=== PATIENT | male | born 1950 | race Caucasian/White ===

== ENCOUNTER 2020-05-14 09:51 | Outpatient (CLI) | payer OTHER, MEDICARE, SELFPAY ==
[2020-05-14 10:16] LABS: Abs Immature Grans 0.08 10^3/uL (0.0-0.06); Absolute Lymphocyte Count 1.76 10^3/uL (1.2-3.4); Absolute Neutrophil Count 12.69 10^3/uL (1.2-6.7); Basophils % 0.3; Eosinophils % 2.1; HCT 45.4 % (40.0-50.0); Immature Grans % 0.5; MCV 93.8 fL (80-95); MPV 10.5 fL (8.0-11.0); Monocytes % 6.6; Neutrophils % 79.5; Nucleated RBC 0 %; Platelet Count 396 10^3/uL (130-400); RBC 4.84 10^6/uL (4.36-5.78); RDW 12.6 % (11.8-14.1); RDW-SD 43.6 fL; WBC 15.96 10^3/uL (4.4-10.8)
[2020-05-14 10:18] LABS: Absolute Basophil Count 0.05 10^3/uL (0.0-0.2); Absolute Eosinophil Count 0.34 10^3/uL (0.0-0.7); Absolute Monocyte Count 1.05 10^3/uL (0.1-0.8)
[2020-05-14 10:36] LABS: ALT 38 U/L (16-63); AST 21 U/L (15-37); Albumin 3.1 g/dL (3.4-5.0); Alkaline Phosphatase 121 U/L (46-116); BUN 20 mg/dL (7-18); Bilirubin, Total 0.5 mg/dL (0.2-1.0); CREATININE 0.89 mg/dL (0.70-1.30); Calcium 10.2 mg/dL (8.5-10.1); Chloride 99 mmol/L (98-107); Glucose 127 mg/dL (74-106); Magnesium 2.1 mg/dL (1.8-2.4); Potassium 4.4 mmol/L (3.5-5.1); Sodium 139 mmol/L (136-145); Total Protein 8.5 g/dL (6.4-8.2)
== END 2020-05-14 10:11 ==
PROVIDERS: PCP Family Medicine; Visit Provider Internal Medicine Medical Oncology
DX: C34.90 Malignant neoplasm of unspecified part of unspecified bronchus or lung (principal)
CPT/HCPCS: 36415; 80053; 83735; 85025

== ENCOUNTER 2020-06-11 02:59 | Outpatient (CLI) | payer OTHER, SELFPAY ==
[2020-06-11 11:31] LABS: Abs Immature Grans 0.23 10^3/uL (0.0-0.06); Absolute Eosinophil Count 0.32 10^3/uL (0.0-0.7); Absolute Lymphocyte Count 2.19 10^3/uL (1.2-3.4); Absolute Monocyte Count 1.25 10^3/uL (0.1-0.8); Basophils % 0.5; Eosinophils % 1.6; HCT 38.5 % (40.0-50.0); HGB 12.9 g/dL (13.5-17.5); Immature Grans % 1.1; Lymphocytes % 10.9; MCH 31.2 pg (27.0-33.0); MCHC 33.5 % (32.0-36.0); MPV 10.6 fL (8.0-11.0); Monocytes % 6.2; Neutrophils % 79.7; Nucleated RBC 0 %; Platelet Count 500 10^3/uL (130-400); RBC 4.14 10^6/uL (4.36-5.78); RDW 13.9 % (11.8-14.1); RDW-SD 45.7 fL; WBC 20.09 10^3/uL (4.4-10.8)
[2020-06-11 11:32] LABS: Absolute Neutrophil Count 16.01 10^3/uL (1.2-6.7)
[2020-06-11 11:47] LABS: ALT 94 U/L (16-63); AST 40 U/L (15-37); Albumin 3.2 g/dL (3.4-5.0); Alkaline Phosphatase 208 U/L (46-116); Anion Gap 11.1 mmol/L (3-11); BUN 28 mg/dL (7-18); Bilirubin, Total 0.4 mg/dL (0.2-1.0); CO2 26.9 mmol/L (21.0-32.0); CREATININE 0.9 mg/dL (0.70-1.30); Calcium 10.5 mg/dL (8.5-10.1); Chloride 96 mmol/L (98-107); Glucose 129 mg/dL (74-106); Magnesium 1.7 mg/dL (1.8-2.4); Potassium 4.9 mmol/L (3.5-5.1); Sodium 134 mmol/L (136-145); Total Protein 8.8 g/dL (6.4-8.2)
== END 2020-06-11 03:00 | disposition home or self-care (01) ==
LOC: LBO 02:59
PROVIDERS: PCP Family Medicine; Visit Provider Internal Medicine Medical Oncology
DX: C34.90 Malignant neoplasm of unspecified part of unspecified bronchus or lung (principal)
CPT/HCPCS: 36415; 80053; 83735; 85025

== ENCOUNTER 2020-06-23 02:55 | Outpatient (CLI) | payer OTHER, SELFPAY ==
[2020-06-23 09:02] LABS: Abs Immature Grans 0.09 10^3/uL (0.0-0.06); Absolute Basophil Count 0.06 10^3/uL (0.0-0.2); Absolute Eosinophil Count 0.26 10^3/uL (0.0-0.7); Absolute Lymphocyte Count 1.71 10^3/uL (1.2-3.4); Absolute Monocyte Count 0.96 10^3/uL (0.1-0.8); Absolute Neutrophil Count 11.27 10^3/uL (1.2-6.7); Basophils % 0.4; Eosinophils % 1.8; HCT 39.5 % (40.0-50.0); HGB 13.1 g/dL (13.5-17.5); Immature Grans % 0.6; Lymphocytes % 11.9; MCHC 33.2 % (32.0-36.0); MCV 93.6 fL (80-95); MPV 10.9 fL (8.0-11.0); Monocytes % 6.7; Neutrophils % 78.6; Nucleated RBC 0 %; Platelet Count 375 10^3/uL (130-400); RBC 4.22 10^6/uL (4.36-5.78); RDW 13.6 % (11.8-14.1); RDW-SD 46.1 fL; WBC 14.34 10^3/uL (4.4-10.8)
[2020-06-23 09:15] LABS: ALT 92 U/L (16-63); AST 51 U/L (15-37); Albumin 2.9 g/dL (3.4-5.0); Alkaline Phosphatase 160 U/L (46-116); Anion Gap 11.3 mmol/L (3-11); BUN 38 mg/dL (7-18); Bilirubin, Total 0.5 mg/dL (0.2-1.0); CO2 21.7 mmol/L (21.0-32.0); CREATININE 0.8 mg/dL (0.70-1.30); Calcium 9.7 mg/dL (8.5-10.1); Chloride 103 mmol/L (98-107); Glucose 118 mg/dL (74-106); Magnesium 2.1 mg/dL (1.8-2.4); Sodium 136 mmol/L (136-145); Total Protein 7.6 g/dL (6.4-8.2)
== END 2020-06-23 02:56 | disposition home or self-care (01) ==
LOC: LBO 02:55
PROVIDERS: PCP Family Medicine; Visit Provider Internal Medicine Medical Oncology
DX: C34.90 Malignant neoplasm of unspecified part of unspecified bronchus or lung (principal)
CPT/HCPCS: 36415; 80053; 83735; 85025

== ENCOUNTER 2020-07-07 04:22 | Outpatient (CLI) | payer OTHER, SELFPAY ==
[2020-07-07 08:45] LABS: Abs Immature Grans 0.14 10^3/uL (0.0-0.06); Absolute Basophil Count 0.05 10^3/uL (0.0-0.2); Absolute Eosinophil Count 0.37 10^3/uL (0.0-0.7); Absolute Lymphocyte Count 2.37 10^3/uL (1.2-3.4); Absolute Monocyte Count 1.18 10^3/uL (0.1-0.8); Absolute Neutrophil Count 7.36 10^3/uL (1.2-6.7); Basophils % 0.4; Eosinophils % 3.2; HCT 39.5 % (40.0-50.0); HGB 12.8 g/dL (13.5-17.5); Immature Grans % 1.2; Lymphocytes % 20.7; MCH 31.1 pg (27.0-33.0); MCHC 32.4 % (32.0-36.0); MCV 95.9 fL (80-95); MPV 10.6 fL (8.0-11.0); Monocytes % 10.3; Neutrophils % 64.2; Nucleated RBC 0 %; Platelet Count 439 10^3/uL (130-400); RBC 4.12 10^6/uL (4.36-5.78); RDW 16.8 % (11.8-14.1); RDW-SD 54.7 fL; WBC 11.47 10^3/uL (4.4-10.8)
[2020-07-07 08:58] LABS: ALT 192 U/L (16-63); AST 51 U/L (15-37); Alkaline Phosphatase 442 U/L (46-116); BUN 40 mg/dL (7-18); Bilirubin, Total 0.5 mg/dL (0.2-1.0); Chloride 103 mmol/L (98-107); Glucose 156 mg/dL (74-106); Magnesium 2.2 mg/dL (1.8-2.4); Potassium 5.2 mmol/L (3.5-5.1); Sodium 138 mmol/L (136-145); Total Protein 7.9 g/dL (6.4-8.2)
== END 2020-07-07 04:23 | disposition home or self-care (01) ==
LOC: LBO 04:22
PROVIDERS: PCP Family Medicine; Visit Provider Internal Medicine Medical Oncology
DX: C34.90 Malignant neoplasm of unspecified part of unspecified bronchus or lung (principal)
CPT/HCPCS: 36415; 80053; 83735; 85025

== ENCOUNTER 2020-07-14 03:09 | Outpatient (CLI) | payer OTHER, SELFPAY ==
[2020-07-14 08:39] LABS: Abs Immature Grans 0.04 10^3/uL (0.0-0.06); Absolute Basophil Count 0.02 10^3/uL (0.0-0.2); Absolute Eosinophil Count 0.19 10^3/uL (0.0-0.7); Absolute Lymphocyte Count 0.87 10^3/uL (1.2-3.4); Absolute Monocyte Count 0.42 10^3/uL (0.1-0.8); Absolute Neutrophil Count 3.88 10^3/uL (1.2-6.7); Basophils % 0.4; Eosinophils % 3.5; HCT 34.8 % (40.0-50.0); HGB 10.8 g/dL (13.5-17.5); Immature Grans % 0.7; Lymphocytes % 16.1; MCH 30.9 pg (27.0-33.0); MCV 99.7 fL (80-95); MPV 10.8 fL (8.0-11.0); Monocytes % 7.7; Neutrophils % 71.6; Nucleated RBC 0 %; Platelet Count 362 10^3/uL (130-400); RBC 3.49 10^6/uL (4.36-5.78); RDW 16.8 % (11.8-14.1); RDW-SD 60.6 fL; WBC 5.42 10^3/uL (4.4-10.8)
[2020-07-14 08:57] LABS: ALT 462 U/L (16-63); AST 256 U/L (15-37); Albumin 2.6 g/dL (3.4-5.0); Alkaline Phosphatase 702 U/L (46-116); Anion Gap 10.9 mmol/L (3-11); BUN 41 mg/dL (7-18); Bilirubin, Total 3.3 mg/dL (0.2-1.0); CO2 24.1 mmol/L (21.0-32.0); CREATININE 1.1 mg/dL (0.70-1.30); Calcium 9.1 mg/dL (8.5-10.1); Chloride 106 mmol/L (98-107); Glucose 165 mg/dL (74-106); Potassium 4.8 mmol/L (3.5-5.1); Sodium 141 mmol/L (136-145); Total Protein 7.2 g/dL (6.4-8.2)
== END 2020-07-14 03:10 | disposition home or self-care (01) ==
LOC: LBO 03:09
PROVIDERS: PCP Family Medicine; Visit Provider Internal Medicine Medical Oncology
DX: C34.90 Malignant neoplasm of unspecified part of unspecified bronchus or lung (principal)
CPT/HCPCS: 36415; 80053; 83735; 85025

== ENCOUNTER 2020-07-28 02:54 | Outpatient (RCR) | payer OTHER, SELFPAY ==
[2020-07-28 09:41] LABS: Abs Immature Grans 0.14 10^3/uL (0.0-0.06); Absolute Basophil Count 0.03 10^3/uL (0.0-0.2); Absolute Lymphocyte Count 1.22 10^3/uL (1.2-3.4); Basophils % 0.2; Eosinophils % 0.6; HCT 41.3 % (40.0-50.0); HGB 13.5 g/dL (13.5-17.5); Immature Grans % 0.9; Lymphocytes % 7.6; MCH 32.8 pg (27.0-33.0); MCHC 32.7 % (32.0-36.0); MCV 100.2 fL (80-95); MPV 10.8 fL (8.0-11.0); Monocytes % 4.6; Neutrophils % 86.1; Nucleated RBC 0 %; Platelet Count 205 10^3/uL (130-400); RBC 4.12 10^6/uL (4.36-5.78); RDW-SD 68.8 fL; WBC 16.02 10^3/uL (4.4-10.8)
[2020-07-28 09:45] LABS: Absolute Monocyte Count 0.74 10^3/uL (0.1-0.8); Absolute Neutrophil Count 13.79 10^3/uL (1.2-6.7)
[2020-07-28 10:04] LABS: ALT 153 U/L (16-63); AST 75 U/L (15-37); Albumin 2.8 g/dL (3.4-5.0); Alkaline Phosphatase 448 U/L (46-116); Anion Gap 14.2 mmol/L (3-11); BUN 37 mg/dL (7-18); Bilirubin, Total 1.9 mg/dL (0.2-1.0); CO2 21.8 mmol/L (21.0-32.0); Calcium 10.1 mg/dL (8.5-10.1); Chloride 103 mmol/L (98-107); FREE T4 1.27 ng/dL (0.76-1.46); Glucose 214 mg/dL (74-106); Potassium 4.5 mmol/L (3.5-5.1); Sodium 139 mmol/L (136-145); TSH 1.93 uIU/mL (0.36-3.74); Total Protein 8.3 g/dL (6.4-8.2)
== END 2020-07-30 23:59 | disposition home or self-care (01) ==
LOC: INF 02:54
PROVIDERS: Internal Medicine Medical Oncology; PCP Family Medicine; Visit Provider Internal Medicine Hematology & Oncology
DX: C34.90 Malignant neoplasm of unspecified part of unspecified bronchus or lung (principal); Z79.899 Other long term (current) drug therapy
CPT/HCPCS: 36415; 80053; 84439; 84443; 85025

== ENCOUNTER 2020-08-25 14:23 | Outpatient (CLI) | payer OTHER, SELFPAY ==
[2020-08-25 14:40] LABS: Abs Immature Grans 0.56 10^3/uL (0.0-0.06); Absolute Eosinophil Count 0.27 10^3/uL (0.0-0.7); HCT 30.2 % (40.0-50.0); HGB 9.8 g/dL (13.5-17.5); Immature Grans % 4.2; MCH 34.1 pg (27.0-33.0); MCHC 32.5 % (32.0-36.0); MCV 105.2 fL (80-95); MPV 9.1 fL (8.0-11.0); Nucleated RBC 0 %; Platelet Count 398 10^3/uL (130-400); RBC 2.87 10^6/uL (4.36-5.78); RDW 19.4 % (11.8-14.1); RDW-SD 74.4 fL; WBC 13.25 10^3/uL (4.4-10.8)
[2020-08-25 15:01] LABS: ALT 66 U/L (16-63); AST 33 U/L (15-37); Albumin 2.6 g/dL (3.4-5.0); Alkaline Phosphatase 293 U/L (46-116); Anion Gap 10.1 mmol/L (3-11); BUN 27 mg/dL (7-18); Bilirubin, Total 0.3 mg/dL (0.2-1.0); CO2 26.9 mmol/L (21.0-32.0); CREATININE 0.8 mg/dL (0.70-1.30); Calcium 9.7 mg/dL (8.5-10.1); Chloride 100 mmol/L (98-107); FREE T4 1.12 ng/dL (0.76-1.46); Glucose 154 mg/dL (74-106); Magnesium 1.3 mg/dL (1.8-2.4); Potassium 4.5 mmol/L (3.5-5.1); Sodium 137 mmol/L (136-145); TSH 1.66 uIU/mL (0.36-3.74); Total Protein 7.5 g/dL (6.4-8.2)
[2020-08-25 15:35] LABS: Absolute Lymphocyte Count 1.86 10^3/uL (1.2-3.4); Absolute Monocyte Count 1.33 10^3/uL (0.1-0.8); Absolute Neutrophil Count 9.14 10^3/uL (1.2-6.7); Atypical Lymphocytes % 1; Bands % 2
[2020-08-25 15:36] LABS: Absolute Basophil Count 0.13 10^3/uL (0.0-0.2); Anisocytosis 2+; Diff Comment Manual Differential; Metamyelocytes % 1; Myelocytes % 3
[2020-08-25 15:37] LABS: Macrocytosis 1+; Microcytosis 1+; Polychromasia Present
== END 2020-08-25 14:24 | disposition home or self-care (01) ==
LOC: LBO 14:24
PROVIDERS: PCP Family Medicine; Visit Provider Internal Medicine Medical Oncology
DX: C34.90 Malignant neoplasm of unspecified part of unspecified bronchus or lung (principal); Z79.899 Other long term (current) drug therapy
CPT/HCPCS: 36415; 80053; 83735; 84439; 84443; 85025